=== PATIENT | female | born 1985 | race Caucasian/White ===

== ENCOUNTER 2021-08-24 19:35 | Emergency (ER) | payer MEDICAID ==
[~2021-08-24] VITALS: Ht 160 cm; Wt 81.6 kg
[2021-08-24 19:40] VITALS: BP_SYST 149
--- NOTE | 2021-08-24 21:00 | NUR ---
ER examining patient in the triage room.
[2021-08-24] MEDS ORDERED: HYDROcodone/ACETAMIN 10-325 MG TAB PO ONE (21:15)
[2021-08-24 22:16] LABS: BASOPHILS # (AUTO) 0.1 K/uL (0.0-0.2); BASOPHILS % (AUTO) 0.5 % (0.0-2.0); EOSINOPHILS # (AUTO) 0.2 K/uL (0.0-0.4); EOSINOPHILS % (AUTO) 1.3 % (0.0-4.0); HEMATOCRIT 34.5 % (36-48); HEMOGLOBIN 11.1 g/dL (12.0-16.0); LYMPHOCYTES # (AUTO) 1.3 K/uL (1.0-5.5); LYMPHOCYTES % (AUTO) 9.4 % (20.5-51.5); MEAN CORPUSCULAR HEMOGLOBIN 28 pg (27-31); MEAN CORPUSCULAR HGB CONC 32 % (32-36); MEAN CORPUSCULAR VOLUME 86 fL (79.0-98.0); MONOCYTES # (AUTO) 0.6 K/uL (0.0-1.0); MONOCYTES % (AUTO) 4.6 % (1.7-9.3); NEUTROPHILS # (AUTO) 11.7 K/uL (1.8-7.7); NEUTROPHILS % (AUTO) 84.2 % (40.0-70.0); PLATELET COUNT (AUTO) 577 K/uL (130-430); RED BLOOD CELL COUNT(AUTO) 4.02 MIL/uL (4.2-6.2); RED CELL DISTRIBUTION WIDTH 28.4 % (9.0-15.0); WHITE BLOOD COUNT (AUTO) 13.8 K/uL (4.8-10.8)
[2021-08-24 22:36] LABS: CREATININE 0.61 mg/dL (0.55-1.30); POTASSIUM 3.8 mmol/L (3.5-5.1)
--- NOTE | 2021-08-24 22:41 | NUR ---
Patient to ER bed 4 to gown for evaluation. Side rails up. Report given to Ayleen RAYMUNDO(reg).
[2021-08-24 22:42] LABS: TOTAL BILIRUBIN 0.7 mg/dL (0.0-1.0)
--- NOTE | 2021-08-24 22:58 | NUR ---
Pt A/O x4, brought self to ED due to c/o R flank pain 9/10 pain scale along with dysuria x1 day. Denies any hematuria. Afrebile. Pt reports hx of mulitple kidney infections and kidney stones x3 years ago. Breathing adequately on RA. Resting comfortably on RA at this time.
--- NOTE | 2021-08-24 23:22 | NUR ---
UA collected and sent to lab
[2021-08-25] MEDS ORDERED: NACL 0.9% 1,000 ML IV ONE
[2021-08-25] MEDS ORDERED: KETOROLAC TROMETHAMINE 30 MG VIAL IVP ONE
[2021-08-25] MEDS ORDERED: ONDANSETRON HCL 4 MG/2 ML VIAL IVP ONE
[2021-08-25 00:08] LABS: BILIRUBIN,URINE NEGATIVE (NEGATIVE); BLOOD, URINE 2+ (NEGATIVE); COLOR,URINE YELLOW (YELLOW); GLUCOSE,URINE NEGATIVE (NEGATIVE); KETONES,URINE NEGATIVE (NEGATIVE); LEUKOCYTE ESTERASE ,URINE 2+ (NEGATIVE); NITRITE, URINE POSITIVE (NEGATIVE); PROTEIN URINE 2+ (NEGATIVE); UROBILINOGEN,URINE 0.2 (0.2-1.0)
[2021-08-25 00:11] LABS: CLARITY/URINE HAZY (CLEAR)
[2021-08-25 00:28] LABS: BACTERIA,URINE MANY /HPF (None Seen); MUCUS,URINE None Seen /LPF (None Seen); WBC,URINE 80-100 /HPF (0-3)
[2021-08-25] MEDS ORDERED: cefTRIAXone 1 GM in D5W 50 ML IV ONE (01:00)
[2021-08-25] MEDS ORDERED: cefTRIAXone 1 GM IVPB PREMIX 50 ML IV ONE (01:10)
[2021-08-25] MEDS ORDERED: CEPH-548 PO (02:11)
[2021-08-25 02:22] VITALS: BP_SYST 149
--- NOTE | 2021-08-25 02:24 | NUR ---
Patient given written and verbal discharge instructions and verbalizes understanding. ER MD Hernandez discussed with patient the results and treatment provided. Patient in stable condition. ID arm band removed. IV catheter removed intact and dressing applied, no active bleeding. Rx of Keflex given. Patient educated on pain management and to follow up with PMD. Pain Scale at time of discharge. Opportunity for questions provided and answered. Medication side effect fact sheet provided.
== END 2021-08-25 02:24 | disposition home or self-care (01) ==
LOC: SED 19:35
DX: N12 Tubulo-interstitial nephritis, not specified as acute or chronic (principal); I10 Essential (primary) hypertension; Z88.8 Allergy status to other drugs, medicaments and biological substances; Z79.899 Other long term (current) drug therapy
CPT/HCPCS: 36415; 74176; 76376; 76770; 80053; 81000; 81025; 83605; 83690; 85025; 87040; 87086; 96365; 96375; 99285; J0696; J1885; J2405

== ENCOUNTER 2021-11-01 17:44 | Emergency (ER) | payer MEDICAID ==
[~2021-11-01] VITALS: Ht 157.5 cm; Wt 90.7 kg
[~2021-11-01 17:44] MED LIST: CEPH-548 PO
[2021-11-01 17:58] VITALS: BP_SYST 121
[2021-11-01 20:15] LABS: BILIRUBIN,URINE 2+ (NEGATIVE); BLOOD, URINE NEGATIVE (NEGATIVE); CLARITY/URINE SL CLOUDY (CLEAR); COLOR,URINE YELLOW (YELLOW); GLUCOSE,URINE TRACE (NEGATIVE); KETONES,URINE TRACE (NEGATIVE); LEUKOCYTE ESTERASE ,URINE TRACE (NEGATIVE); NITRITE, URINE NEGATIVE (NEGATIVE); PROTEIN URINE TRACE (NEGATIVE)
--- NOTE | 2021-11-01 20:24 | NUR ---
Patient to ER bed 06 to gown for evaluation. Side rails up.
[2021-11-01 20:28] LABS: BACTERIA,URINE FEW /HPF (None Seen); HYALINE CASTS, URINE 0-10 /LPF (None Seen); MUCUS,URINE 1+ /LPF (None Seen); RBC,URINE 0-3 /HPF (0-3); WBC,URINE 0-3 /HPF (0-3)
[2021-11-01] MEDS ORDERED: CEPH250C PO (20:52)
[2021-11-01] MEDS ORDERED: PHEN-622 PO (20:52)
[2021-11-01] MEDS: PHENAZOPYRIDINE HCL 100 MG TABLET PO ONE (21:47)
[2021-11-01] MEDS: cephALEXin 500 MG CAPSULE PO ONE (21:47)
[2021-11-01] MEDS: IBUPROFEN 600 MG TABLET PO ONE (21:47)
[2021-11-01 21:56] VITALS: BP_SYST 133
== END 2021-11-01 22:04 | disposition home or self-care (01) ==
LOC: SED 17:44
DX: N39.0 Urinary tract infection, site not specified (principal); R10.30 Lower abdominal pain, unspecified; K12.1 Other forms of stomatitis; I10 Essential (primary) hypertension; Z88.2 Allergy status to sulfonamides
CPT/HCPCS: 81000; 81025; 99284

== ENCOUNTER 2022-08-31 23:18 | Inpatient (IN) | payer MEDICAID ==
[~2022-08-31] VITALS: Ht 157.5 cm; Wt 87.7 kg
[~2022-08-31 23:18] MED LIST changes: +CEPH250C PO; +PHEN-622 PO
[2022-08-31 23:21] VITALS: BP_SYST 121
[2022-09-01 00:24] LABS: BASOPHILS # (AUTO) 0.1 K/uL (0.0-0.2); BASOPHILS % (AUTO) 1.2 % (0.0-2.0); CALCIUM 7.8 mg/dL (8.4-11.0); CREATININE 0.82 mg/dL (0.55-1.30); EOSINOPHILS # (AUTO) 0.1 K/uL (0.0-0.4); EOSINOPHILS % (AUTO) 1.1 % (0.0-4.0); LYMPHOCYTES # (AUTO) 3.7 K/uL (1.0-5.5); LYMPHOCYTES % (AUTO) 33.3 % (20.5-51.5); MEAN CORPUSCULAR HEMOGLOBIN 25 pg (27-31); MEAN CORPUSCULAR HGB CONC 31 % (32-36); MEAN CORPUSCULAR VOLUME 82 fL (79.0-98.0); MONOCYTES # (AUTO) 0.6 K/uL (0.0-1.0); MONOCYTES % (AUTO) 5.5 % (1.7-9.3); NEUTROPHILS # (AUTO) 6.5 K/uL (1.8-7.7); NEUTROPHILS % (AUTO) 58.9 % (40.0-70.0); PLATELET COUNT (AUTO) 425 K/uL (130-430); RED BLOOD CELL COUNT(AUTO) 2.69 MIL/uL (4.2-6.2); RED CELL DISTRIBUTION WIDTH 24.9 % (9.0-15.0); WHITE BLOOD COUNT (AUTO) 11.1 K/uL (4.8-10.8)
[2022-09-01 00:28] LABS: ALBUMIN 1.9 g/dL (3.4-4.8); TOTAL BILIRUBIN 2.5 mg/dL (0.0-1.0)
[2022-09-01 00:31] LABS: HEMATOCRIT 21.9 % (36-48); HEMOGLOBIN 6.8 g/dL (12.0-16.0)
[2022-09-01 01:01] LABS: BILIRUBIN,URINE NEGATIVE (NEGATIVE); BLOOD, URINE NEGATIVE (NEGATIVE); CLARITY/URINE CLEAR (CLEAR); COLOR,URINE YELLOW (YELLOW); GLUCOSE,URINE NEGATIVE (NEGATIVE); KETONES,URINE NEGATIVE (NEGATIVE); LEUKOCYTE ESTERASE ,URINE NEGATIVE (NEGATIVE); NITRITE, URINE NEGATIVE (NEGATIVE); PROTEIN URINE NEGATIVE (NEGATIVE); UROBILINOGEN,URINE 0.2 (0.2-1.0)
[2022-09-01 01:21] LABS: INR 1.2 (0.8-1.2); PROTHROMBIN TIME 11.7 SECS (9.5-12.5)
[2022-09-01] MEDS ORDERED: PANT40TA45 PO (03:18)
[2022-09-01] MEDS ORDERED: BENA-6 PO (03:18)
[2022-09-01 03:47] VITALS: BP_SYST 122
[2022-09-01 08:00] VITALS: BP_SYST 108
[2022-09-01] MEDS ORDERED: BENAZEPRIL HCL 20 MG TABLET (LOTENSIN) PO SCH (11:30)
[2022-09-01] MEDS ORDERED: ACETAMINOPHEN 325 MG TABLET PO PRN ×2 (11:30→12:15)
[2022-09-01] MEDS ORDERED: LORazepam 2 MG/ML VIAL IVP PRN (11:30)
[2022-09-01] MEDS ORDERED: HYDROcodone/ACETAMIN 10-325 MG TAB PO PRN (11:30)
[2022-09-01] MEDS ORDERED: NALOXONE HCL 0.4 MG/ML AMP (NARCAN) IVP PRN ×2 (11:30)
[2022-09-01 12:00] VITALS: BP_SYST 125
[2022-09-01] MEDS ORDERED: lisinopriL 20 MG TABLET PO ONE (12:15)
[2022-09-01] MEDS ORDERED: PANTOPRAZOLE SODIUM 40 MG TAB PO ONE (12:15)
[2022-09-01] MEDS: ONDANSETRON HCL 4 MG/2 ML VIAL IVP PRN ×2 (13:32→18:47)
[2022-09-01] MEDS: NORMAL SALINE 5 ML DISP.SYRIN IVF SCH ×2 (13:40→21:21)
[2022-09-01] MEDS ORDERED: MIDAZOLAM HCL 5 MG/ML VIAL (VERSED) IV ONE (14:34)
[2022-09-01] MEDS ORDERED: NS 1000 ML IV.SOLN IV ONE (14:34)
[2022-09-01] MEDS ORDERED: ROCURONIUM BROMIDE 10 MG/ML (ZEMURON) ONE (14:34)
[2022-09-01] MEDS ORDERED: DEXAMETHASONE SOD PHOSPHATE 4 MG/ML VIAL ONE (14:34)
[2022-09-01] MEDS ORDERED: PROPOFOL 200MG/ 20ML VIAL (DIPRIVAN) IV ONE (14:34)
[2022-09-01] MEDS ORDERED: ceFAZolin SODIUM 1 GM VIAL ONE (14:34)
[2022-09-01] MEDS ORDERED: LIDOCAINE 1% 10 MG/ML, 20 ML MDV ONE (14:34)
[2022-09-01] MEDS ORDERED: SUGAMMADEX SODIUM 200 MG/2 ML VIAL IV ONE (14:34)
[2022-09-01] MEDS ORDERED: LR 1,000 ML IV.SOLN IV ONE (14:34)
[2022-09-01] MEDS ORDERED: ONDANSETRON HCL 4 MG/2 ML VIAL ONE (14:34)
[2022-09-01] MEDS ORDERED: KETOROLAC TROMETHAMINE 30 MG VIAL ONE (14:34)
[2022-09-01] MEDS ORDERED: DESFLURANE 15 MIN GAS INH ONE (14:34)
[2022-09-01] MEDS ORDERED: fentaNYL CITRATE 250 MCG/5 ML AMP ONE (14:34)
[2022-09-01] MEDS: HYDROcodone/ACETAMIN 5-325 MG TAB (NORCO/ VICODIN) PO PRN ×2 (15:15→20:10)
[2022-09-01 16:00] VITALS: BP_SYST 115
[2022-09-01 20:00] VITALS: BP_SYST 101
[2022-09-02] VITALS: BP_SYST 101
[2022-09-02 00:15] VITALS: BP_SYST 108
[2022-09-02] MEDS: NORMAL SALINE 5 ML DISP.SYRIN IVF SCH ×3 (05:43→23:26)
[2022-09-02] MEDS: HYDROcodone/ACETAMIN 5-325 MG TAB (NORCO/ VICODIN) PO PRN ×4 (07:05→21:49)
[2022-09-02 07:26] LABS: BASOPHILS # (AUTO) 0.1 K/uL (0.0-0.2); BASOPHILS % (AUTO) 1.3 % (0.0-2.0); EOSINOPHILS # (AUTO) 0.2 K/uL (0.0-0.4); EOSINOPHILS % (AUTO) 2.3 % (0.0-4.0); HEMATOCRIT 29.4 % (36-48); HEMOGLOBIN 9.8 g/dL (12.0-16.0); LYMPHOCYTES % (AUTO) 19.1 % (20.5-51.5); MEAN CORPUSCULAR HEMOGLOBIN 28 pg (27-31); MEAN CORPUSCULAR HGB CONC 33 % (32-36); MEAN CORPUSCULAR VOLUME 85 fL (79.0-98.0); MONOCYTES % (AUTO) 9.3 % (1.7-9.3); NEUTROPHILS # (AUTO) 7.1 K/uL (1.8-7.7); PLATELET COUNT (AUTO) 395 K/uL (130-430); RED BLOOD CELL COUNT(AUTO) 3.48 MIL/uL (4.2-6.2); RED CELL DISTRIBUTION WIDTH 22.3 % (9.0-15.0); WHITE BLOOD COUNT (AUTO) 10.5 K/uL (4.8-10.8)
[2022-09-02 07:56] VITALS: BP_SYST 131
[2022-09-02 08:13] LABS: CALCIUM 8.1 mg/dL (8.4-11.0); CREATININE 0.95 mg/dL (0.55-1.30)
[2022-09-02] MEDS: PANTOPRAZOLE SODIUM 40 MG TAB PO SCH (08:24)
[2022-09-02] MEDS: lisinopriL 20 MG TABLET PO SCH (08:27)
[2022-09-02] MEDS: ONDANSETRON HCL 4 MG/2 ML VIAL IVP PRN (10:01)
[2022-09-02 11:30] VITALS: BP_SYST 120
[2022-09-02 15:42] VITALS: BP_SYST 93
[2022-09-02 20:00] VITALS: BP_SYST 122
[2022-09-03 00:37] VITALS: BP_SYST 114
[2022-09-03 03:27] VITALS: BP_SYST 122
[2022-09-03] MEDS: NORMAL SALINE 5 ML DISP.SYRIN IVF SCH ×2 (06:55→14:00)
[2022-09-03 07:04] LABS: BASOPHILS # (AUTO) 0.1 K/uL (0.0-0.2); EOSINOPHILS # (AUTO) 0.3 K/uL (0.0-0.4); EOSINOPHILS % (AUTO) 3.3 % (0.0-4.0); HEMATOCRIT 28.2 % (36-48); HEMOGLOBIN 9.4 g/dL (12.0-16.0); LYMPHOCYTES # (AUTO) 1.9 K/uL (1.0-5.5); LYMPHOCYTES % (AUTO) 22.5 % (20.5-51.5); MEAN CORPUSCULAR HEMOGLOBIN 29 pg (27-31); MEAN CORPUSCULAR HGB CONC 33 % (32-36); MEAN CORPUSCULAR VOLUME 86 fL (79.0-98.0); MONOCYTES # (AUTO) 0.7 K/uL (0.0-1.0); NEUTROPHILS # (AUTO) 5.4 K/uL (1.8-7.7); NEUTROPHILS % (AUTO) 65.2 % (40.0-70.0); PLATELET COUNT (AUTO) 370 K/uL (130-430); RED BLOOD CELL COUNT(AUTO) 3.28 MIL/uL (4.2-6.2); RED CELL DISTRIBUTION WIDTH 22.5 % (9.0-15.0); WHITE BLOOD COUNT (AUTO) 8.3 K/uL (4.8-10.8)
[2022-09-03] MEDS: PANTOPRAZOLE SODIUM 40 MG TAB PO SCH (09:00)
[2022-09-03] MEDS: lisinopriL 20 MG TABLET PO SCH (09:00)
[2022-09-03 11:29] VITALS: BP_SYST 128
[2022-09-03] MEDS ORDERED: ONDANSETRON HCL 4 MG/2 ML VIAL IVP PRN (15:00)
[2022-09-03] MEDS ORDERED: NALOXONE HCL 0.4 MG/ML AMP (NARCAN) IVP PRN (15:00)
[2022-09-03] MEDS ORDERED: METOCLOPRAMIDE HCL 10 MG/2 ML VIAL IVP PRN (15:15)
[2022-09-03] MEDS ORDERED: LR 1,000 ML IV SCH (15:15)
[2022-09-03] MEDS ORDERED: LABETALOL 100 MG/ 20ML VIAL IVP PRN (15:15)
[2022-09-03] MEDS ORDERED: hydrALAZINE HCL 20 MG/ML VIAL IVP PRN (15:15)
[2022-09-03] MEDS ORDERED: HYDROmorphone 1 MG/ML INJ. CARTRIDGE IVP PRN ×2 (15:15)
[2022-09-03] MEDS ORDERED: MEPERIDINE HCL/PF 25 MG/ML DISP.SYRIN IVP PRN (15:15)
[2022-09-03] MEDS ORDERED: HYDROmorphone 1 MG/ML INJ. CARTRIDGE ONE (15:46)
[2022-09-03] MEDS ORDERED: OXYCODONE/ACETAMINOPHEN 5-325 TABLET PO PRN ×2 (18:00)
[2022-09-03] MEDS ORDERED: HYDROcodone/ACETAMIN 5-325 MG TAB (NORCO/ VICODIN) PO PRN (18:00)
[2022-09-03 18:05] VITALS: BP_SYST 128
== END 2022-09-03 21:50 | disposition home or self-care (01) | DRG 513 ==
LOC: SED 23:18 → SMU 09-01 02:19
PROVIDERS: ADMIT Preventive Medicine Preventive Medicine/Occupational Environmental Medicine; ATTEND Specialist
PROC: 30233N1 Transfusion of Nonautologous Red Blood Cells into Peripheral Vein, Percutaneous Approach (ICD-10-PCS; 2022-09-01)
PROC: 0UDB8ZZ Extraction of Endometrium, Via Natural or Artificial Opening Endoscopic (ICD-10-PCS; 2022-09-03)
PROC: 0U5B8ZZ Destruction of Endometrium, Via Natural or Artificial Opening Endoscopic (ICD-10-PCS; 2022-09-03)
PROC: 0UB98ZX Excision of Uterus, Via Natural or Artificial Opening Endoscopic, Diagnostic (ICD-10-PCS; principal; 2022-09-03 14:44)
DX: N84.0 Polyp of corpus uteri (principal); E43 Unspecified severe protein-calorie malnutrition; R65.10 Systemic inflammatory response syndrome (SIRS) of non-infectious origin without acute organ dysfunction; E83.51 Hypocalcemia; E87.1 Hypo-osmolality and hyponatremia; E88.09 Other disorders of plasma-protein metabolism, not elsewhere classified; K70.9 Alcoholic liver disease, unspecified; N93.8 Other specified abnormal uterine and vaginal bleeding; N92.0 Excessive and frequent menstruation with regular cycle; E78.5 Hyperlipidemia, unspecified; I10 Essential (primary) hypertension; D72.829 Elevated white blood cell count, unspecified; E87.6 Hypokalemia; K21.9 Gastro-esophageal reflux disease without esophagitis; R74.01 Elevation of levels of liver transaminase levels; Z20.822 Contact with and (suspected) exposure to COVID-19; R93.89 Abnormal findings on diagnostic imaging of other specified body structures; Z88.2 Allergy status to sulfonamides; Z88.8 Allergy status to other drugs, medicaments and biological substances; Z79.899 Other long term (current) drug therapy; Z90.49 Acquired absence of other specified parts of digestive tract; Z87.442 Personal history of urinary calculi; D62 Acute posthemorrhagic anemia
CPT/HCPCS: 36415; 76856-TC; 80048; 80053; 81003; 84702; 85025; 85610-TC; 85730-TC; 86886; 86900; 86901; 86920; 87040; 87081; 88305; 99285; J0690; J1100; J1170; J1885; J2001; J2060; J2250; J2405; J2704; J3010; J3490; J7030; J7120; P9021

== ENCOUNTER 2022-09-13 11:14 | Emergency (ER) | payer MEDICAID ==
[~2022-09-13] VITALS: Ht 157.5 cm; Wt 86.2 kg
[2022-09-13 11:14] VITALS: BP_SYST 124
[~2022-09-13 11:14] MED LIST changes: +BENA-6 PO; -CEPH-548 PO; -CEPH250C PO; +PANT40TA45 PO; -PHEN-622 PO
--- NOTE | 2022-09-13 11:14 | NUR ---
Patient triaged and placed in waiting room. VSS and patient appears in no acute distress at this time. Accompanied by SELF, awaiting available bed, and MD notified of need for MSE.
--- NOTE | 2022-09-13 11:21 | NUR ---
Note kathyaone in EDM - 09/13/22 at 1137 by SHANNON Patient triaged and placed in waiting room. VSS and patient appears in no acute distress at this time. Accompanied by SELF, awaiting available bed, and MD notified of need for MSE.
--- NOTE | 2022-09-13 11:40 | NUR ---
BROUGHT BACK TO BED #7 AND REPORT GIVEN TO SHA
--- NOTE | 2022-09-13 12:00 | NUR ---
ASSUMED PT CARE PT AOX4 GCS 15 C/O H/A 8/10 N/V and bloody nose x 2 weeks. pt recently had 3 units of blood transfused d/t vaginal bld on 09/03/22 here at [facility]. pt states she had ablation and recieved the 3 units however she feels fatigued
[2022-09-13 12:20] LABS: BASOPHILS # (AUTO) 0.1 K/uL (0.0-0.2); BASOPHILS % (AUTO) 1.7 % (0.0-2.0); EOSINOPHILS # (AUTO) 0.1 K/uL (0.0-0.4); EOSINOPHILS % (AUTO) 1.7 % (0.0-4.0); HEMATOCRIT 31.5 % (36-48); LYMPHOCYTES # (AUTO) 1.1 K/uL (1.0-5.5); LYMPHOCYTES % (AUTO) 14.3 % (20.5-51.5); MEAN CORPUSCULAR HEMOGLOBIN 26 pg (27-31); MEAN CORPUSCULAR HGB CONC 32 % (32-36); MEAN CORPUSCULAR VOLUME 83 fL (79.0-98.0); MONOCYTES # (AUTO) 0.9 K/uL (0.0-1.0); MONOCYTES % (AUTO) 11.6 % (1.7-9.3); NEUTROPHILS # (AUTO) 5.3 K/uL (1.8-7.7); NEUTROPHILS % (AUTO) 70.7 % (40.0-70.0); PLATELET COUNT (AUTO) 358 K/uL (130-430); WHITE BLOOD COUNT (AUTO) 7.5 K/uL (4.8-10.8)
[2022-09-13 12:37] LABS: CALCIUM 8.5 mg/dL (8.4-11.0); CREATININE 0.75 mg/dL (0.55-1.30)
[2022-09-13 12:39] LABS: INR 1.2 (0.8-1.2); PROTHROMBIN TIME 11.6 SECS (9.5-12.5)
[2022-09-13 12:41] LABS: ALBUMIN 2.4 g/dL (3.4-4.8); TOTAL BILIRUBIN 2.4 mg/dL (0.0-1.0)
[2022-09-13] MEDS ORDERED: FERR250T2 PO (14:42)
[2022-09-13 15:16] VITALS: BP_SYST 120
--- NOTE | 2022-09-13 15:16 | NUR ---
PATIENT DISCHARGED ACCORDINGLY WILL FOLLOW UP WITH PRIMARY CARE OUTPATIENT. NO RESPIRATORY DISTRESS NOTED PT AMBULATED OUT OF ER.
--- NOTE | 2022-09-13 15:17 | NUR ---
Patient given written and verbal discharge instructions and verbalizes understanding. ER MD discussed with patient the results and treatment provided. Patient in stable condition. ID arm band removed. IV catheter removed intact and dressing applied, no active bleeding. Rx of IRON given. Patient educated on pain management and to follow up with PMD. Pain Scale . Opportunity for questions provided and answered. Medication side effect fact sheet provided.
== END 2022-09-13 15:17 | disposition home or self-care (01) ==
LOC: SED 11:14
DX: D64.9 Anemia, unspecified (principal); R74.01 Elevation of levels of liver transaminase levels; R53.1 Weakness; N89.8 Other specified noninflammatory disorders of vagina; R51.9 Headache, unspecified; R42 Dizziness and giddiness; I10 Essential (primary) hypertension; Z88.1 Allergy status to other antibiotic agents; Z88.2 Allergy status to sulfonamides; Z79.899 Other long term (current) drug therapy
CPT/HCPCS: 36415; 76700-TC; 80053; 81002; 81025; 85025; 85610-TC; 85730-TC; 93005; 99285

== ENCOUNTER 2023-06-10 14:01 | Emergency (ER) | payer MEDICAID ==
[~2023-06-10] VITALS: Ht 157.5 cm; Wt 90.7 kg
[~2023-06-10 14:01] MED LIST changes: +FERR250T2 PO
[2023-06-10 14:04] VITALS: BP_SYST 127; PULSE 105; RESP 22; TEMP 98.3; O2SAT 98
[2023-06-10 15:56] LABS: BASOPHILS % (AUTO) 1.1 % (0.0-2.0); EOSINOPHILS # (AUTO) 0.1 K/uL (0.0-0.4); EOSINOPHILS % (AUTO) 3.5 % (0.0-4.0); HEMATOCRIT 33.1 % (36-48); HEMOGLOBIN 10.4 g/dL (12.0-16.0); LYMPHOCYTES # (AUTO) 0.8 K/uL (1.0-5.5); LYMPHOCYTES % (AUTO) 21.2 % (20.5-51.5); MEAN CORPUSCULAR HEMOGLOBIN 23 pg (27-31); MEAN CORPUSCULAR HGB CONC 31 % (32-36); MEAN CORPUSCULAR VOLUME 75 fL (79.0-98.0); MONOCYTES # (AUTO) 0.4 K/uL (0.0-1.0); MONOCYTES % (AUTO) 9.9 % (1.7-9.3); NEUTROPHILS # (AUTO) 2.3 K/uL (1.8-7.7); NEUTROPHILS % (AUTO) 64.3 % (40.0-70.0); PLATELET COUNT (AUTO) 224 K/uL (130-430); RED BLOOD CELL COUNT(AUTO) 4.42 MIL/uL (4.2-6.2); RED CELL DISTRIBUTION WIDTH 19.9 % (9.0-15.0); WHITE BLOOD COUNT (AUTO) 3.6 K/uL (4.8-10.8)
[2023-06-10 15:58] LABS: BILIRUBIN,URINE 1+ (NEGATIVE); COLOR,URINE YELLOW (YELLOW); GLUCOSE,URINE NEGATIVE (NEGATIVE); KETONES,URINE NEGATIVE (NEGATIVE); LEUKOCYTE ESTERASE ,URINE NEGATIVE (NEGATIVE); NITRITE, URINE NEGATIVE (NEGATIVE); PROTEIN URINE NEGATIVE (NEGATIVE)
[2023-06-10 16:02] LABS: CALCIUM 8.7 mg/dL (8.4-11.0); CREATININE 0.7 mg/dL (0.55-1.30); POTASSIUM 3.6 mmol/L (3.5-5.1)
[2023-06-10 16:06] LABS: BLOOD, URINE TRACE (NEGATIVE); CLARITY/URINE HAZY (CLEAR)
[2023-06-10 16:07] LABS: ALBUMIN 2.9 g/dL (3.4-4.8); TOTAL BILIRUBIN 0.7 mg/dL (0.0-1.0); TOTAL PROTEIN, SERUM 7.7 g/dL (6.4-8.3)
[2023-06-10 16:11] LABS: BACTERIA,URINE FEW /HPF (None Seen); RBC,URINE 0-3 /HPF (0-3); WBC,URINE 0-3 /HPF (0-3)
[2023-06-10 16:12] LABS: MUCUS,URINE None Seen /LPF (None Seen)
[2023-06-10 17:20] VITALS: BP_SYST 127; PULSE 105; RESP 22; TEMP 98.3; O2SAT 98
== END 2023-06-10 17:20 | disposition home or self-care (01) ==
LOC: SED 14:01
DX: D64.9 Anemia, unspecified (principal); T50.B95A Adverse effect of other viral vaccines, initial encounter; I10 Essential (primary) hypertension; E78.00 Pure hypercholesterolemia, unspecified; Z88.2 Allergy status to sulfonamides; Z79.899 Other long term (current) drug therapy; Y92.89 Other specified places as the place of occurrence of the external cause
CPT/HCPCS: 36415; 80053; 81000; 81001; 81015; 81025; 85025; 93005; 99284